=== PATIENT | female | born 1990 | race Hispanic/Latino ===

== ENCOUNTER 2023-08-26 09:53 | Inpatient (IN) | payer MEDICAID, OTHER ==
[2023-08-25 10:45] LABS: Hemoglobin 10.8 g/dL (12.0-15.5); Platelet Count 203 10x3/uL (150-450)
[2023-08-25 11:44] LABS: HBSAg Index 0.18 S/CO (0-0.99); Hep B Surf Ag Non-Reactive S/CO (NonReactive)
[2023-08-25 11:46] LABS: Syphilis Antibody Nonreactive (Nonreactive); Syphilis Antibody Index 0.03 S/CO (<1.00 Non-Reactive)
[2023-08-26] MEDS ORDERED: Bicitra 30 ML UDCUP PO PRN (10:38)
[2023-08-26] MEDS ORDERED: Tranexamic Acid 1,000 MG/10 ML VIAL IVP PRN (10:38)
[2023-08-26] MEDS ORDERED: Ondansetron PF 4 MG/2 ML Vial IVP PRN ×4 (10:38→16:16)
[2023-08-26] MEDS ORDERED: Azithromycin 500 MG in Sodium Chloride 0.9% 250 ML 250 ML IVPB SCH (10:38)
[2023-08-26] MEDS ORDERED: Methylergonovine 0.2 MG/ML VIAL IM PRN (10:38)
[2023-08-26] MEDS ORDERED: CEFAZOLIN 2 GM in Sodium Chloride 0.9% 100 ML IVPB SCH (10:38)
[2023-08-26] MEDS ORDERED: Misoprostol 200 MCG TAB PR PRN (10:38)
[2023-08-26] MEDS ORDERED: Lactated Ringer's 1,000 ML IV SCH (10:38)
[2023-08-26] MEDS ORDERED: Oxytocin 30 units/NS 500 ML 500 ML IV SCH (10:38)
[2023-08-26] MEDS ORDERED: Diphenoxylate HCl/Atropine Tablet PO PRN (10:38)
[2023-08-26] MEDS ORDERED: Famotidine/PF 20 mg/2ml Vial SLOW IVP PRN (10:38)
[2023-08-26] MEDS ORDERED: Promethazine HCl 25 MG/ML VIAL IM PRN ×2 (10:38→14:18)
[2023-08-26] MEDS ORDERED: hydrALAZINE 20 MG/ML VIAL SLOW IVP PRN ×2 (10:38→16:16)
[2023-08-26] MEDS ORDERED: Carboprost 250 MCG/ML AMP IM PRN (10:38)
[2023-08-26] MEDS ORDERED: Bupivacaine/Epinephrine 0.25% 30 ML VIAL ONE (11:40)
[2023-08-26] MEDS ORDERED: Dexamethasone 4 mg/ml Vial ONE ×2 (11:40→13:04)
[2023-08-26] MEDS ORDERED: Morphine PF 10 MG/10 ML VIAL ONE (11:56)
[2023-08-26] MEDS ORDERED: Dexmedetomidine 200 MCG/2 ML VIAL ONE (11:56)
[2023-08-26] MEDS ORDERED: PHENYLEPHRINE-NS 100 MCG/ML 10 ML SYRINGE ONE ×2 (12:22→13:21)
[2023-08-26] MEDS ORDERED: Oxytocin 10 UNITS/ML VIAL ONE ×2 (12:22→13:08)
[2023-08-26] MEDS ORDERED: Phenylephrine 40 MG/NS 250 ML 250 ML ONE (12:23)
[2023-08-26] MEDS ORDERED: Ondansetron PF 4 MG/2 ML Vial ONE (12:25)
[2023-08-26] MEDS ORDERED: Metoclopramide HCl 10 MG/2 ML VIAL ONE (13:04)
[2023-08-26] MEDS ORDERED: Promethazine HCl 25 MG/ML VIAL ONE (13:04)
[2023-08-26 13:21] LABS: RapidComm Collect By CBN
[2023-08-26 13:23] LABS: RapidComm Collect By CBN; pH (Cord, venous) 7.249 (7.250-7.350)
[2023-08-26] MEDS ORDERED: Promethazine HCl 25 MG SUPP PR PRN (14:18)
[2023-08-26] MEDS ORDERED: Meperidine HCl/PF 25 MG/ML VIAL SLOW IVP PRN (14:18)
[2023-08-26] MEDS ORDERED: Morphine 4 MG/ML VIAL SLOW IVP PRN (14:18)
[2023-08-26] MEDS ORDERED: Moisturizing Cream (Eucerin) 113 GM JAR TOP PRN (14:18)
[2023-08-26] MEDS ORDERED: diphenhydrAMINE 50 MG/ML VIAL IVP PRN (14:18)
[2023-08-26] MEDS ORDERED: Naloxone HCl 0.4 mg/ml Vial IVP PRN ×2 (14:18)
[2023-08-26] MEDS ORDERED: Naloxone HCl 0.4 mg/ml Vial IV PRN (14:18)
[2023-08-26] MEDS ORDERED: fentaNYL 50 mcg/mL 1 mL Vial SLOW IVP PRN (14:18)
[2023-08-26] MEDS ORDERED: Communication Order-Pharmacy FS SCH (14:30)
[2023-08-26] MEDS ORDERED: Simethicone Chewable 80 MG TAB PO PRN (16:16)
[2023-08-26] MEDS ORDERED: Bisacodyl 10 MG SUPP PR PRN (16:16)
[2023-08-26] MEDS ORDERED: Boostrix 0.5 ML (Tdap) VIAL (>/=7 yrs of age) IM ONE (16:16)
[2023-08-26] MEDS ORDERED: Lanolin Ointment 7 GM TUBE TOP PRN (16:16)
[2023-08-26] MEDS ORDERED: diphenhydrAMINE 25 MG CAP PO PRN (16:16)
[2023-08-26] MEDS: Ferrous Sulfate 325 MG TAB PO SCH (21:15)
[2023-08-26] MEDS: Docusate 100 MG CAP PO SCH (21:15)
[2023-08-27 04:10] LABS: Hematocrit 26.4 % (34.9-44.5); Hemoglobin 8.7 g/dL (12.0-15.5); Mean Corpuscular Hemoglobin 27.5 pg (27.0-33.0); Mean Corpuscular Volume 83.5 fl (81.6-98.3); Mean Platelet Volume 11.7 fl (7.4-10.4); Platelet Count 181 10x3/uL (150-450); RBC Distribution Width 13.2 % (11.5-14.5); Red Blood Cell (RBC) Count 3.16 10x6/uL (3.90-5.03); White Blood Cell (WBC) Count 11.1 10x3/uL (3.5-10.5)
[2023-08-27] MEDS: HYDROcodone/Acetaminophen 5/325 mg Tablet PO PRN ×5 (06:02→18:56)
[2023-08-27] MEDS: Docusate 100 MG CAP PO SCH ×2 (10:23→21:36)
[2023-08-27] MEDS: Prenatal Vitamin 1 TAB PO SCH (10:23)
[2023-08-27] MEDS: Ferrous Sulfate 325 MG TAB PO SCH ×2 (18:54→21:36)
[2023-08-28] MEDS: HYDROcodone/Acetaminophen 5/325 mg Tablet PO PRN ×4 (04:20→18:42)
[2023-08-28] MEDS: Docusate 100 MG CAP PO SCH ×2 (08:47→20:27)
[2023-08-28] MEDS: Prenatal Vitamin 1 TAB PO SCH (08:47)
[2023-08-28] MEDS: Ferrous Sulfate 325 MG TAB PO SCH ×2 (08:47→20:27)
[2023-08-29] MEDS: HYDROcodone/Acetaminophen 5/325 mg Tablet PO PRN ×3 (03:48→14:56)
[2023-08-29] MEDS: Docusate 100 MG CAP PO SCH (07:59)
[2023-08-29] MEDS: Ferrous Sulfate 325 MG TAB PO SCH (07:59)
[2023-08-29] MEDS: Prenatal Vitamin 1 TAB PO SCH (07:59)
[2023-08-29 08:04] VITALS: BP 110/73; TEMP 98.2
== END 2023-08-29 16:45 | disposition home or self-care (01) | DRG 788 ==
LOC: CSHLD 09:53 → CSHPP 16:05
PROVIDERS: ADMIT Family Medicine; ATTEND Family Medicine
PROC: 10D00Z1 Extraction of Products of Conception, Low, Open Approach (ICD-10-PCS; principal; 2023-08-26)
DX: O34.211 Maternal care for low transverse scar from previous cesarean delivery (principal); Z3A.39 39 weeks gestation of pregnancy; Z37.0 Single live birth; Z88.0 Allergy status to penicillin; Z88.8 Allergy status to other drugs, medicaments and biological substances; O24.420 Gestational diabetes mellitus in childbirth, diet controlled; O99.892 Other specified diseases and conditions complicating childbirth; N73.6 Female pelvic peritoneal adhesions (postinfective)
CPT/HCPCS: 36415; 36416; 51702; 82805; 85014; 85018; 85027; 85049; 86780; 86850; 86900; 86901; 87340; J0456; J1100; J2274; J2405; J2550; J2590; J2765; J3490; J7050; S0028

== ENCOUNTER 2024-10-10 17:07 | Emergency (ER) | payer MEDICAID, SELFPAY ==
[2024-10-10] MEDS ORDERED: Ondansetron PF 4 MG/2 ML Vial ONE (19:41)
[2024-10-10] MEDS ORDERED: Morphine 4 MG/ML VIAL ONE (19:43)
[2024-10-10] MEDS ORDERED: Ondansetron ODT 4 MG TAB ONE (22:15)
== END 2024-10-10 21:20 | disposition home or self-care (01) ==
LOC: CSHERS 17:07
DX: M79.672 Pain in left foot (principal); Z55.6 Problems related to health literacy; Z75.8 Other problems related to medical facilities and other health care; Y04.2XXA Assault by strike against or bumped into by another person, initial encounter
CPT/HCPCS: 96374; 96375; J2272; J2405; Q0162

== ENCOUNTER 2025-11-18 13:49 | Emergency (ER) | payer SELFPAY ==
[2025-11-18] MEDS ORDERED: Acetaminophen 500 MG TAB ONE (14:40)
== END 2025-11-18 18:00 | disposition home or self-care (01) ==
LOC: CSHERS 13:49
DX: S82.831A Other fracture of upper and lower end of right fibula, initial encounter for closed fracture (principal); W10.8XXA Fall (on) (from) other stairs and steps, initial encounter
CPT/HCPCS: 29505